=== PATIENT | female | born 1955 | race Caucasian/White ===

== ENCOUNTER 2018-12-14 21:35 | Emergency (ER) | payer OTHER ==
[~2018-12-14] VITALS: Ht 157.5 cm; Wt 66.1 kg
[~2018-12-14 21:35] MED LIST: ERYTHROMYCIN EYE; INSU100V18; INSU100V19
[2018-12-14 21:42] VITALS: Ht 157.5 cm; Wt 66.1 kg
[2018-12-14] MEDS ORDERED: ACETAMINOPHEN 500 MG TAB PO STA (22:06)
--- NOTE | 2018-12-14 22:12 | ERD ---
ER Documentation Chief Complaint Chief Complaint hot and cold feeling x 2 days HPI This is a 63-year-old female who presents emergency department with complaints of feelings of fever at home for 2 days. Stated that she did not actually took her temperature. Took Advil this morning. Reports that she has history of diabetes and takes insulin. Stated that her blood sugar this morning was 120 mg/dL. LMP: Unknown. Denies headache, head injury, loss of consciousness, dizziness, neck pain, neck stiffness, throat pain, difficulty swallowing, difficulty breathing lying flat, shoulder pain, chest pain, back pain, abdominal pain, nausea, vomiting, constipation, diarrhea, urinary symptoms, or possibility being , loss of bowel and bladder control, trauma, injury, falls, difficulty walking due to pain, numbness or tingling sensation, calf pain, recent travel, recent major surgery in the last 3 weeks, calf pain, recent long travel, recent exposure to any illness, recent antibiotic use in the last 3 months, fever, chills, seizures. Past medical history: Diabetes. Medication: Insulin. Surgical history: Social: Denies smoking, use of alcoholic beverages, use of illegal drugs. ROS All systems reviewed and are negative except as per history of present illness. Medications Home Meds Active Scripts Omeprazole* (Omeprazole*) 40 Mg Capsule.dr, 40 MG PO DAILY, #30 CAP Prov:RICH MARLEY 12/15/18 Ibuprofen* (Motrin*) 600 Mg Tab, 600 MG PO Q6H PRN for PAIN AND OR ELEVATED TEMP, #30 TAB Prov:RICH MARLEY 12/15/18 Ciprofloxacin Hcl* (Ciprofloxacin Hcl*) 500 Mg Tablet, 500 MG PO BID for 7 Days, TAB Prov:RICH MARLEY 12/15/18 Reported Medications [Erythromycin Eye Gtt] No Conflict Check 09/20/10 Insulin Lispro (Humalog) 100 U/Ml Vial 05/04/10 Insulin Glargine,Hum.rec.anlog (Lantus) 100 U/Ml Vial 05/04/10 Allergies Allergies: Coded Allergies: No Known Drug Allergies (Verified Allergy, Mild, 09/20/10) PMhx/Soc History of Surgery: Yes (LEG SURGERY, ) Anesthesia Reaction: No Hx Neurological Disorder: No Hx Respiratory Disorders: No Hx Cardiac Disorders: No Hx Psychiatric Problems: No Hx Miscellaneous Medical Probl: No Hx Alcohol Use: No Hx Substance Use: No Hx Tobacco Use: No Smoking Status: Never smoker Physical Exam Vitals Vital Signs Date Temp Pulse Resp B/P (MAP) Pulse Ox O2 O2 Flow FiO2 Time Delivery Rate 12/15/18 97.8 79 17 102/50 97 Room Air 01:08 (67) 12/14/18 98.4 97 16 108/57 100 21:42 (74) Physical Exam Const: No acute distress Head: Atraumatic Eyes: Normal Conjunctiva. No icterus. Eyeballs are not sunken. No signs of severe dehydration. ENT: Normal External Ears, Nose and Mouth. Bilateral ears: TMs are not erythematous with no bleeding. No discharge. No hearing loss. No mastoid tenderness throat: Uvula is midline and nondisplaced with tonsils are +1 bilaterally without redness without exudates. Tolerating secretions. He repeats which will include status. No tripoding.. Nose: Midline without karrie ation. No septal hematoma. There is no frontomaxillary sinus tenderness palpation. Neck: Full range of motion. No meningismus. No neck stiffness. No signs of meningeal irritation. Resp: Clear to auscultation bilaterally. Respirations even and unlabored. Cardio: Regular rate and rhythm, no murmurs. Abd: Soft, non tender, non distended. Normal bowel sounds. Negative Gonzalez sign. No lower abdominal tenderness. No CVA tenderness. Ambulatory with steady gait without pain to abdomen. Skin: No petechiae or rashes. Color appears normal for ethnicity. No skin tenting. No signs of severe dehydration. Back: No midline or flank tenderness Ext: No cyanosis, or edema Neur: Awake and alert. No neurological deficit. Psych: Normal Mood and Affect Results 24 hrs Laboratory Tests Test 12/14/18 21:45 12/14/18 23:39 Bedside Glucose 240 mg/dL Urine Color YELLOW Urine Clarity SLIGHTLY CLOUDY Urine pH 5.0 Urine Specific [place] 1.012 Urine Ketones NEGATIVE mg/dL Urine Nitrite NEGATIVE mg/dL Urine Bilirubin NEGATIVE mg/dL Urine Urobilinogen NEGATIVE mg/dL Urine Leukocyte Esterase 2+ Lior/ul Urine Microscopic RBC 2 /HPF Urine Microscopic WBC 50 /HPF Urine Squamous Epithelial Cells FEW /HPF Urine Bacteria FEW /HPF Urine Hemoglobin NEGATIVE mg/dL Urine Glucose 3+ mg/dL Urine Total Protein NEGATIVE mg/dl Current Medications Medications Dose Sig/Janette Start Time Status Last (Trade) Ordered Route PRN Stop Time Admin Dose Reason Admin 500 mg ONCE STAT 12/14/18 DC 12/14/18 Acetaminophen PO 22:06 22:17 (Tylenol 12/14/18 22:08 Tab) Ceftriaxone 1 gm ONCE ONCE 12/15/18 DC 12/15/18 Sodium IM 01:00 00:51 (Rocephin) 12/15/18 01:01 Procedures/MDM Diagnostic tests: POC glucose: 240 mg/dL. Urinalysis: UTI. Culture urine: Sent. Chest x-ray: Aortic atherosclerotic disease. Otherwise radiographically unremarkable chest. Treatment: Tylenol. Ceftriaxone. Re-evaluation: Afebrile. No episode of emesis here in the emergency department. Denies pain. No abdominal tenderness. No CVA tenderness. Ambulatory with steady gait and without pain to abdomen. No neurological deficit. Stated that she is comfortable going home. Differential diagnosis I have low suspicion for sepsis, severe serious pectoral infection, deep space infection, mastoiditis, peritonsillar abscess, meningitis, pneumonia, cholecystitis, diverticulitis, diverticulitis with abscess, pancreatitis, DKA, pyelonephritis, obstructing kidney stone, septic stone, nephrolithiasis. Final diagnosis: UTI. Prescription: Motrin. Omeprazole. Cipro. Follow-up with PCP in the next 24-48 hours. Come back here in the emergency department for any new symptoms or any worsening symptoms. All questions and concerns were answered. Patient and family members verbalized understanding and agreed with plan of care. Hemodynamically stable on discharge. Departure Diagnosis: Primary Impression: UTI (urinary tract infection) Condition: Stable Additional Instructions: Follow-up with PCP in the next 24-48 hours. Come back here in the emergency department for any new symptoms or any worsening symptoms. RICH MARLEY December 14, 2018 22:12
[2018-12-15] MEDS ORDERED: IBUP-1542 PO (00:36)
[2018-12-15] MEDS ORDERED: CIPR500T4 PO (00:36)
[2018-12-15] MEDS ORDERED: OMEP40CA6 PO (00:37)
[2018-12-15] MEDS ORDERED: CEFTRIAXONE 1 GM INJ IM ONE (01:00)
[2018-12-15 01:08] VITALS: BP 102/50; PULSE 79; RESP 17
[2018-12-16] MEDS ORDERED: IOHEXOL 300MG/ML 150 ML BTL ONE (15:18)
== END 2018-12-15 01:10 | disposition home or self-care (01) ==
LOC: FTE 21:35
DX: N39.0 Urinary tract infection, site not specified (principal); E11.9 Type 2 diabetes mellitus without complications; Z79.4 Long term (current) use of insulin
CPT/HCPCS: 71046; 81001; 82962; 87086; 96372; J0696; Z7502; Z7610; Q9967